=== PATIENT | female | born 2000 | race African-American/Black ===

== ENCOUNTER 2019-03-06 04:31 | Emergency (ER) | payer MEDICAID ==
[~2019-03-06] VITALS: Ht 172.7 cm; Wt 67.1 kg
[2019-03-06 05:04] LABS: BILIRUBIN,URINE NEGATIVE (NEG); CLARITY,URINE CLEAR; COLOR,URINE YELLOW; NITRITE,URINE NEGATIVE (NEG); PROTEIN,URINE NEGATIVE (NEG-TRACE)
[2019-03-06] MEDS ORDERED: ONDANSETRON ODT 4 MG TAB.RAPDIS. ONE (05:09)
[2019-03-06] MEDS ORDERED: IBUPROFEN 200 MG TABLET. PO ONE ×2 (05:09→05:15)
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
[2019-03-06] MEDS ORDERED: ONDANSETRON ODT 4 MG TAB.RAPDIS. PO ONE (05:15)
[2019-03-06 05:16] VITALS: BP 121/57
[2019-03-06 05:18] LABS: BACTERIA,URINE FEW /HPF (0-FEW); RBC,URINE OCC /HPF (0-2); SQUAMOUS EPITHELIAL CELL,UR FEW /LPF
[2019-03-06] MEDS ORDERED: CIPR500T94 PO (05:32)
== END 2019-03-06 06:25 | disposition home or self-care (01) ==
LOC: ER 04:31
DX: N39.0 Urinary tract infection, site not specified (principal)
CPT/HCPCS: 81001; 87070; 87086; 87880; 99284; Q0162

== ENCOUNTER 2019-07-14 22:57 | Emergency (ER) | payer SELFPAY ==
[~2019-07-14] VITALS: Ht 172.7 cm; Wt 65.8 kg
[~2019-07-14 22:57] MED LIST: CIPR500T94 PO
[2019-07-14 23:09] VITALS: BP 148/77
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
[2019-07-14 23:22] LABS: BILIRUBIN,URINE NEGATIVE (NEG); CLARITY,URINE CLEAR; COLOR,URINE YELLOW; NITRITE,URINE NEGATIVE (NEG); PROTEIN,URINE 30 mg/dL (NEG-TRACE)
[2019-07-14 23:28] LABS: BACTERIA,URINE FEW /HPF (0-FEW); RBC,URINE 0 /HPF (0-2)
[2019-07-15] MEDS ORDERED: cefTRIAXone IM 250 MG VIAL IM ONE
[2019-07-15] MEDS ORDERED: AZITHROMYCIN 250 MG TABLET. PO ONE
[2019-07-15] MEDS ORDERED: CEPH-264 PO (00:01)
[2019-07-15] MEDS ORDERED: LIDOCAINE 1% PF 2 ML VIAL. ONE (00:11)
[2019-07-16 19:09] LABS: GC PROBE Negative (Negative)
== END 2019-07-15 00:25 | disposition home or self-care (01) ==
LOC: ER 22:57
DX: O23.41 Unspecified infection of urinary tract in pregnancy, first trimester (principal); Z20.2 Contact with and (suspected) exposure to infections with a predominantly sexual mode of transmission; Z3A.00 Weeks of gestation of pregnancy not specified
CPT/HCPCS: 81001; 81025; 87086; 87186; 87491; 87591; 96372; 99284; J0696; Q0111; Q0144

== ENCOUNTER 2019-09-14 17:27 | Emergency (ER) | payer SELFPAY ==
[~2019-09-14 17:27] MED LIST changes: +CEPH-264 PO
[2019-09-14 17:45] VITALS: BP 160/79
[2019-09-14 19:08] LABS: BILIRUBIN,URINE NEGATIVE (NEG); CLARITY,URINE CLOUDY; COLOR,URINE YELLOW; NITRITE,URINE NEGATIVE (NEG); PH,URINE 6.5; PROTEIN,URINE NEGATIVE (NEG-TRACE); UROBILINOGEN,URINE 0.2 mg/dL (0.2 mg/dL)
[2019-09-14 19:17] LABS: BACTERIA,URINE FEW /HPF (0-FEW); RBC,URINE OCC /HPF (0-2); SQUAMOUS EPITHELIAL CELL,UR MOD /LPF
[2019-09-14] MEDS ORDERED: CEPH500C PO (19:34)
[2019-09-14] MEDS ORDERED: FLUC150T PO (19:34)
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
== END 2019-09-14 19:44 | disposition home or self-care (01) ==
LOC: ER 17:27
DX: N39.0 Urinary tract infection, site not specified (principal); N76.0 Acute vaginitis; B96.89 Other specified bacterial agents as the cause of diseases classified elsewhere; L29.2 Pruritus vulvae; R30.0 Dysuria; Z98.890 Other specified postprocedural states
CPT/HCPCS: 81001; 81025; 87086; 99284